=== PATIENT | female | born 1975 | race Caucasian/White ===

== ENCOUNTER → 2018-10-01 | Outpatient (CLI) | payer BC ==
[~2018-10-01] MED LIST: PRENATAL1 TA1 PO
== END ==
LOC: COL.RAD 16:58
DX: R10.31 Right lower quadrant pain (principal)

== ENCOUNTER → 2019-08-04 | Outpatient (CLI) | payer BC | LOC: MC.RAD 15:41 | DX: Z12.31 Encounter for screening mammogram for malignant neoplasm of breast (principal) ==

== ENCOUNTER → 2020-11-25 | Outpatient (CLI) | payer BC | LOC: COL.RAD | DX: R10.2 Pelvic and perineal pain (principal); Z97.8 Presence of other specified devices ==

== ENCOUNTER 2021-10-20 09:59 | Day surgery (SDC) | payer BC ==
[~2021-10-20] VITALS: Ht 165.1 cm; Wt 63.1 kg
[2021-10-20 10:44] VITALS: BP 111/75; PULSE 70; TEMP 98.6
[2021-10-20 11:55] VITALS: BP 106/77; PULSE 70; TEMP 98.2
--- NOTE | 2021-10-20 11:55 | NUR ---
Patient arrived on a cart from the End[facility] suite. Patient is oriented x3, however is drowsy. Patient ambulated from the cart to the chair. Vitals obatined. Report obtained. Patient requested Sprite and buttered toast with jam. Call segura is at bedside. Will continue to monitor per intervals.
[2021-10-20 12:10] VITALS: BP 111/75; PULSE 88
--- NOTE | 2021-10-20 12:10 | NUR ---
Patient is tolerating her Sprite and toast well. Vitals obtained.
[2021-10-20 12:25] VITALS: BP 104/80; PULSE 77
--- NOTE | 2021-10-20 12:25 | NUR ---
Vitals obtained. Patient denies neusea. No vomiting. IV was discontinued due to discharge. Catheter tip intact. Pressure dressing applied. No reddness or swelling noted. Discharge instructions and educational material was reviewed with the patient and her . Both verbalized understanding and the patient signed the related paperwork. Both denied having any questions or concerns. Patient denied needing assistance changing into her personal clothes.
--- NOTE | 2021-10-20 12:30 | NUR ---
was in to speak with the patient
--- NOTE | 2021-10-20 12:51 | NUR ---
Patient was escorted out to the patient entrence by TYRONE Blair via wheelchair. Her has the discharge packet and the patient's personal belongings. The patient was transferred into the care of her , who is present to drive.
== END 2021-10-20 12:45 | disposition home or self-care (01) ==
LOC: SDCO 09:59
DX: Z12.11 Encounter for screening for malignant neoplasm of colon (principal); K63.5 Polyp of colon; K62.89 Other specified diseases of anus and rectum
CPT/HCPCS: J2704; J7030

== ENCOUNTER → 2021-10-30 | Outpatient (CLI) | payer BC | LOC: MC.RAD 11:06 | DX: Z12.31 Encounter for screening mammogram for malignant neoplasm of breast (principal) ==

== ENCOUNTER → 2024-03-31 | Outpatient (CLI) | payer BC | LOC: MC.RAD 13:36 | DX: Z12.31 Encounter for screening mammogram for malignant neoplasm of breast (principal) ==